=== PATIENT | female | born 1935 | race Caucasian/White ===

== ENCOUNTER 2016-10-05 00:42 | Inpatient (IN) | payer OTHER ==
[2016-10-05] MEDS ORDERED: DUONEB (A & A) INH ONE ×2 (00:51→03:39)
[2016-10-05] MEDS ORDERED: ROCEPHIN 1 GM/NS 50 ML IV ONE (00:51)
[2016-10-05] MEDS ORDERED: LASIX IV ONE ×2 (00:51→03:59)
--- NOTE | 2016-10-05 00:57 | PROVIDER DOCUMENTATION ---
HPI-Respiratory General - General Chief Complaint: Shortness of Breath Stated Complaint: respiratory distress Time Seen by Provider: 10/05/16 00:50 Source: patient Allergies/Adverse Reactions: Patient Allergies Allergy/AdvReac Type Severity Reaction Status Date / Time Penicillins Allergy Unknown Verified 10/05/16 01:51 strawberry Allergy Unknown Verified 10/05/16 01:51 tomato Allergy Unknown Verified 10/05/16 01:51 - History of Present Illness-Resp Nature of Presenting Problem: 80 Y/O F presents to ED with Respiratory Distress. Pt was brought in by EMS for care facility. Pt was in moderate distress on arrival, EMS stated that her care facility stated a 102 Fever earlier in ED 98.3. Pt has severe pedal edema, COPD, CHF, and dementia. Onset about 2 days ago. Quality of Pain: reports: tightness Severity in ED: reports: moderate, severe Onset/Duration: reports: 2 days ago Timing: reports: still present Context: reports: aspiration/choking Cough Quality/Degree: reports: severe, dry cough Associated Symptoms: reports: cough, shortness of breath Review of Systems - Adult - REVIEW OF SYSTEMS - ADULT Constitutional: reports: fever. denies: chills Eyes: reports: no symptoms reported Ears, Nose, Mouth & Throat: reports: no symptoms reported Cardiovascular: reports: no symptoms reported Respiratory: reports: cough, shortness of breath Gastrointestinal: denies: abdominal pain, diarrhea, nausea, vomiting Genitourinary: reports: no symptoms reported Musculoskeletal: reports: no symptoms reported Integumentary: reports: no symptoms reported Neurological: reports: no symptoms reported Psychiatric: reports: no symptoms reported Endocrine: reports: no symptoms reported Hematologic/Lymphatic: reports: no symptoms reported Allergic/Immunologic: reports: no symptoms reported All Other Systems: Reviewed and Negative Past History - Adult - PAST MEDICAL HISTORY-ADULT Review of Records: reports: Old Records Reviewed, Nursing Assessment Review, Medications Reviewed, Social history reviewed & non-contributory. - SOCIAL HISTORY Smoking: non-smoker Substance Use: none/never Alcohol Use Frequency: never Living Situation: care facility Physical Exam-General - PHYSICAL EXAM-ADULT Initial Vital Signs Reviewed: Yes - CONSTITUTIONAL General Appearance: alert, moderate distress, obese, other (agitated). negative : appears well - EYES Eyes: PERRL/EOMI, pink conjunctivae, fundi clear, no AV nicking - HEAD, EARS, NOSE, MOUTH & THROAT HENMT: normocephalic/atraumatic, moist mucous membranes, normal ENT inspection, TMs normal, pharynx normal - NECK Neck: non-tender, full range of motion, supple - RESPIRATORY Respiratory: chest non-tender, crackles (bilateral), rhonchi (bilateral) - GASTROINTESTINAL (ABDOMEN) Abdominal Exam: normal bowel sounds, non tender, soft - LYMPHATIC Lymphatic: no adenopathy - MUSCULOSKELETAL Back Exam: normal inspection, no CVA tenderness Extremity: inflammation, pedal edema - SKIN Integumentary: normal color, normal turgor, warm/dry - PSYCHIATRIC Psych/Mental Status: oriented x 3 Progress - PLAN OF CARE/RESULTS Progress/Plan/Lab Results: Laboratory Tests 10/05/16 10/05/16 10/05/16 00:40 00:40 00:40 WBC 18.32 H RBC 3.80 L Hgb 11.0 L Hct 33.8 L MCV 88.9 MCH 28.9 MCHC 32.5 L RDW Std Deviation 15.0 H Plt Count 428 H MPV 12.5 H Immature Gran % (Auto) 0.7 H Neut % (Auto) 80.2 H Lymph % (Auto) 8.0 L Louisa % (Auto) 10.7 H Eos % (Auto) 0.2 Baso % (Auto) 0.2 Immature Gran # (Auto) 0.12 H Neut # (Auto) 14.71 H Lymph # (Auto) 1.47 Louisa # (Auto) 1.96 H Eos # (Auto) 0.03 Baso # (Auto) 0.03 PT INR PTT (Actin FS) D-Dimer 1.61 H Specimen Type Sample Site pH pCO2 pO2 HCO3 Base Excess Oxyhemoglobin ABG O2 Sat (Calculated) ABG O2 Saturation ABG Carboxyhemoglobin ABG Methemoglobin Иван Test A-a O2 Difference Total Hemoglobin Lactate Blood Gas Modality Vent Mode FiO2 % Inspiratory BiPAP Expiratory BiPAP Sodium 141 Potassium 5.3 H Chloride 101 Carbon Dioxide 22 L Anion Gap 18 BUN 64 H Creatinine 2.4 H Estimated GFR/1.73 m2 19 BUN/Creatinine Ratio 27 Glucose 240 H Calculated Osmolality 307 Calcium 9.7 Magnesium 1.7 Total Bilirubin 0.75 AST 41 H ALT 64 H Alkaline Phosphatase 129 H Creatine Kinase 151 Troponin T Vlo-Y-Sjoemutsgvq Pept Total Protein 7.9 Albumin 3.5 Globulin 4.4 Albumin/Globulin Ratio 0.8 Plasma Lactate Urine Source Urine Color Urine Turbidity Urine pH Ur Specific Durand Urine Protein Ur Glucose (Stick) Ur Ketones (Stick) Urine Blood Urine Nitrite Urine Bilirubin Urobilinogen Dipstick Urine Leukocytes Urine WBC (Auto) Urine RBC (Auto) U Epithel Cells (Auto) Urine Bacteria (Auto) Urine Crystals Small Round Cells Urine Casts Urine Yeast-like Cells 10/05/16 10/05/16 10/05/16 00:40 00:40 00:40 WBC RBC Hgb Hct MCV MCH MCHC RDW Std Deviation Plt Count MPV Immature Gran % (Auto) Neut % (Auto) Lymph % (Auto) Louisa % (Auto) Eos % (Auto) Baso % (Auto) Immature Gran # (Auto) Neut # (Auto) Lymph # (Auto) Louisa # (Auto) Eos # (Auto) Baso # (Auto) PT 10.7 INR 1.01 PTT (Actin FS) 28.2 D-Dimer Specimen Type Sample Site pH pCO2 pO2 HCO3 Base Excess Oxyhemoglobin ABG O2 Sat (Calculated) ABG O2 Saturation ABG Carboxyhemoglobin ABG Methemoglobin Иван Test A-a O2 Difference Total Hemoglobin Lactate Blood Gas Modality Vent Mode FiO2 % Inspiratory BiPAP Expiratory BiPAP Sodium Potassium Chloride Carbon Dioxide Anion Gap BUN Creatinine Estimated GFR/1.73 m2 BUN/Creatinine Ratio Glucose Calculated Osmolality Calcium Magnesium Total Bilirubin AST ALT Alkaline Phosphatase Creatine Kinase Troponin T 0.027 Lgc-S-Cnpyzltjtwt Pept 4234 H Total Protein Albumin Globulin Albumin/Globulin Ratio Plasma Lactate Urine Source Urine Color Urine Turbidity Urine pH Ur Specific Durand Urine Protein Ur Glucose (Stick) Ur Ketones (Stick) Urine Blood Urine Nitrite Urine Bilirubin Urobilinogen Dipstick Urine Leukocytes Urine WBC (Auto) Urine RBC (Auto) U Epithel Cells (Auto) Urine Bacteria (Auto) Urine Crystals Small Round Cells Urine Casts Urine Yeast-like Cells 10/05/16 10/05/16 10/05/16 00:40 01:00 01:20 WBC RBC Hgb Hct MCV MCH MCHC RDW Std Deviation Plt Count MPV Immature Gran % (Auto) Neut % (Auto) Lymph % (Auto) Louisa % (Auto) Eos % (Auto) Baso % (Auto) Immature Gran # (Auto) Neut # (Auto) Lymph # (Auto) Louisa # (Auto) Eos # (Auto) Baso # (Auto) PT INR PTT (Actin FS) D-Dimer Specimen Type ARTERIAL Sample Site R BRACHIAL pH 7.42 pCO2 34 L pO2 114 H HCO3 23.4 Base Excess -2.0 Oxyhemoglobin 96.6 ABG O2 Sat (Calculated) 13.5 L ABG O2 Saturation 98.8 ABG Carboxyhemoglobin 1.00 ABG Methemoglobin 1.3 Иван Test YES A-a O2 Difference 200.0 Total Hemoglobin 9.8 L Lactate 1.80 Blood Gas Modality BI PAP Vent Mode BIPAP FiO2 % 50.0 Inspiratory BiPAP 16.0 Expiratory BiPAP 6.0 Sodium Potassium Chloride Carbon Dioxide Anion Gap BUN Creatinine Estimated GFR/1.73 m2 BUN/Creatinine Ratio Glucose Calculated Osmolality Calcium Magnesium Total Bilirubin AST ALT Alkaline Phosphatase Creatine Kinase Troponin T Fur-D-Xracumncjuk Pept Total Protein Albumin Globulin Albumin/Globulin Ratio Plasma Lactate 2.0 Urine Source CATH Urine Color ORANGE Urine Turbidity TURBID Urine pH 5.0 Ur Specific Durand 1.011 Urine Protein TRACE A Ur Glucose (Stick) NEGATIVE Ur Ketones (Stick) NEGATIVE Urine Blood SMALL A Urine Nitrite NEGATIVE Urine Bilirubin NEGATIVE Urobilinogen Dipstick NORMAL Urine Leukocytes LARGE A Urine WBC (Auto) TNTC A Urine RBC (Auto) <10 U Epithel Cells (Auto) <10 Urine Bacteria (Auto) 3+ Urine Crystals NONE SEEN Small Round Cells NONE SEEN Urine Casts NONE SEEN Urine Yeast-like Cells NONE SEEN Orders Category Date Time Status Cardiac Monitoring DIRECTED Care 10/05/16 00:50 Active Gutierrez Cath Insertion ORDERED Care 10/05/16 00:51 Active Saline Loc NOW Care 10/05/16 00:50 Active Vital Signs Order Q15M Care 10/05/16 01:29 Active CHEST-1 VIEW [RAD] Stat Exams 10/05/16 01:28 Taken ABG [RESP] Routine Lab 10/05/16 01:20 Completed ABG [RESP] Routine Lab 10/05/16 02:26 Ordered BLOOD CULTURE [BLDCUL] Stat Lab 10/05/16 01:00 Received CBC WITH ELECTRONIC DIFF [HEME] Stat Lab 10/05/16 00:40 Results CK PROFILE [SP CHEM] Stat Lab 10/05/16 00:40 Completed COMPREHENSIVE METABOLIC PANEL [CHEM] Stat Lab 10/05/16 00:40 Completed D-DIMER [CHEM] Stat Lab 10/05/16 00:40 Completed LACTATE, PLASMA [CHEM] Stat Lab 10/05/16 00:40 Completed MAGNESIUM [CHEM] Stat Lab 10/05/16 00:40 Completed PRO B-NATRIURETIC PEPTIDE Stat Lab 10/05/16 00:40 Completed PROTIME WITH INR [COAG] Stat Lab 10/05/16 00:40 Completed PTT [COAG] Stat Lab 10/05/16 00:40 Completed TROPONIN T Stat Lab 10/05/16 00:40 Completed UA NIMS W/REFLEX CULT [URINALYSIS] Stat Lab 10/05/16 01:00 Completed URINE CULTURE [RM] Routine Lab 10/05/16 01:34 Received URINE MANUAL MICROSCOPIC [URINALYSIS] Stat Lab 10/05/16 01:00 Completed Albuterol 2.5MG/Ipratrop 0.5MG [Duoneb (A & A)] Med 10/05/16 00:51 Discontinued 3 ml INH NOW ONE CefTRIAXONE 1 GM/NS [Rocephin 1 gm/Ns] 50 ml Med 10/05/16 00:51 Discontinued IV NOW Furosemide [Lasix] Med 10/05/16 00:51 Discontinued 40 mg IV NOW ONE Levofloxacin 500 mg/D5w [Levaquin 500 mg/D5w] 100 ml Med 10/05/16 02:26 Active IV NOW Aerosol Treatments Routine Oth 10/05/16 00:53 Active Aerosol Treatments Stat Oth 10/05/16 00:53 Active BIPAP Stat Oth 10/05/16 00:54 Active EKG [EKG] Stat Ther 10/05/16 00:50 Ordered Vital Signs - 24 hr 10/05/16 10/05/16 10/05/16 00:45 01:45 02:09 Temperature 98.3 F Pulse Rate 60 60 68 Respiratory 34 H 25 H 28 H Rate Blood Pressure 156/74 252/68 151/74 O2 Sat by Pulse 85 L 100 98 Oximetry - EKG 1 Time of EKG reading by physician:: 00:52 EKG Read and Signed by:: Nigel Cardenas EKG Interpretation (*Must complete 3 of following elements*): Abnormal Rate: 60 Rhythm: Ventricular-Paced rhythm Comments: Abnormal ECG - XRAY 1 XRAY Study: Chest Impression: Abnormal XRAY Interpretation: CHF, possible right side pneumonia - CONSULTS/PCP/HOSPITALIST Notification #1 *Consult/PCP/Hospitalist*: Departure - Departure Time of Disposition Order: 02:26 DIAGNOSIS: SOB (shortness of breath) UTI (urinary tract infection) Qualifiers: Urinary tract infection type: site unspecified Hematuria presence: without hematuria Qualified Code(s): N39.0 - Urinary tract infection, site not specified CHF (congestive heart failure) Qualifiers: Congestive heart failure type: unspecified congestive heart failure type Congestive heart failure chronicity: unspecified congestive heart failure chronicity Qualified Code(s): I50.9 - Heart failure, unspecified Pneumonia Qualifiers: Laterality: left Lung location: lower lobe of lung Disposition: ADMITTED INPATIENT 09 Certified Medical Emergency: Emergent Condition: Stable Additional Instructions: ED Follow Up Instructions: You have been treated by a care provider in the Emergency Department. These instructions are being provided to you so you can have an understanding of how to care for yourself upon discharge. Upon discharge from the Emergency Department, you are responsible for making arrangements for follow-up care by a physician of your choice. Take all prescribed medications as directed. Return to the Emergency Department immediately for any new or worsening symptoms. You may call the Physician Referral phone number at [phone] to obtain a list of Physicians who are taking new patients. Attestation - Scribe Verification/Attestation Scribe:: Micaela Jimenez Acting as Scribe for:: Nigel Cardenas Scribe documention review:: This chart was documented by a scribe and accurately reflects the service the provider performed and the decisions made by the provider.
[2016-10-05 01:27] LABS: URINE SOURCE CATH
[2016-10-05 01:28] LABS: ALLEN TEST YES; BLOOD TYPE ARTERIAL; DRAW SITE R BRACHIAL; METHB 1.3 % (0.0-1.5); O2(CT) 13.5 mL/dL (15.0-23.0); PCO2(98.6) 34 mmHg (35-45); PO2(98.6) 114 mmHg (60-100); SAMPLE BLOOD; SAO2 98.8 % (95.0-100.0); THB 9.8 g/dL (11.5-17.4); pH(98.6) 7.42 (7.35-7.45)
[2016-10-05 01:29] LABS: BASO% 0.2 % (0.0-0.8); EOS# 0.03 X1000 (0.0-0.7); EOS% 0.2 % (0.0-10.0); HEMATOCRIT 33.8 % (37.0-47.0); IMM GRAN# 0.12 X1000 (0.0-0.04); IMM GRAN% 0.7 % (0.0-0.5); LYMPH# 1.47 X1000 (1.2-3.4); MANUAL DIFF NEEDED? YES; MCH 28.9 PG (27-31); MCHC 32.5 g/dL (33-37); MCV 88.9 FL (81-99); MONO# 1.96 X1000 (0.11-0.59); MONO% 10.7 % (1.7-9.3); MPV 12.5 FL (7.4-10.4); NEUT% 80.2 % (42.2-75.2); PLT 428 X1000 (130-400)
[2016-10-05 01:29] LABS: MODALITY BI PAP
[2016-10-05 01:29] LABS: BILIRUBIN URINE NEGATIVE (NEGATIVE); BLOOD URINE SMALL (NEGATIVE); COLOR ORANGE; GLUCOSE URINE NEGATIVE (NEGATIVE); LEUKOCYTES URINE LARGE (NEGATIVE); NITRITE URINE NEGATIVE (NEGATIVE); PROTEIN URINE TRACE mg/dL (NEGATIVE); SP GRAVITY URINE 1.011; TURBIDITY URINE TURBID (CLEAR); UROBILINOGEN URINE NORMAL (NORMAL)
[2016-10-05 01:30] LABS: URINE MICRO REVIEW NEEDED? YES
[2016-10-05 01:33] LABS: UR EPITHELIAL CELLS <10 /HPF (<10); URINE BACTERIA 3+ /HPF; URINE CULTURE NEEDED? YES; URINE RBC <10 /HPF (<10); URINE WBC TNTC /HPF (<10)
[2016-10-05 01:34] LABS: INR 1.01; PROTIME 10.7 Seconds (9.2-11.7); PTT 28.2 Seconds (22.0-36.0)
[2016-10-05 01:43] LABS: ALBUMIN 3.5 g/dL (3.5-5.0); CALCIUM 9.7 mg/dL (8.8-10.2); MAGNESIUM 1.7 mg/dL (1.5-2.7); POTASSIUM 5.3 mmol/L (3.5-5.1); TOTAL BILIRUBIN 0.75 mg/dL (0.20-1.00); TOTAL PROTEIN 7.9 g/dL (6.3-8.3)
[2016-10-05 01:45] LABS: URINE CASTS NONE SEEN; URINE CRYSTALS NONE SEEN; URINE SMALL ROUND CELLS NONE SEEN
[2016-10-05] MEDS ORDERED: LEVAQUIN 500 MG/D5W 100 ML IV ONE (02:26)
[2016-10-05 03:44] LABS: BANDS 4 % (0-1); LYMPHS 11 % (21-51); MONO 9 % (1-9)
[2016-10-05 04:10] LABS: ALLEN TEST YES; BE -0.6 mmoll (-3.0-3.0); BLOOD TYPE ARTERIAL; DRAW SITE R BRACHIAL; METHB 1.2 % (0.0-1.5); O2(CT) 15.5 mL/dL (15.0-23.0); PCO2(98.6) 33 mmHg (35-45); PO2(98.6) 92 mmHg (60-100); SAMPLE BLOOD; SAO2 98.2 % (95.0-100.0); THB 11.4 g/dL (11.5-17.4); pH(98.6) 7.45 (7.35-7.45)
[2016-10-05 04:11] LABS: MODALITY BI PAP
[2016-10-05] MEDS ORDERED: ZOFRAN IV PRN (05:24)
--- NOTE | 2016-10-05 05:44 | EKG Report ---
Test Performed on : 10/05/2016 00:52:25 AM Test Reason : SOB Blood Pressure : / mmHG Vent. Rate : 060 BPM Atrial Rate : 060 BPM P-R Int : 000 ms QRS Dur : 160 ms QT Int : 540 ms P-R-T Axes : 000 -65 092 degrees QTc Int : 540 ms Ventricular-paced rhythm Abnormal ECG When compared with ECG of 15-MAR-2012 11:36, Vent. rate has decreased BY 8 BPM Unconfirmed Result
[2016-10-05] MEDS: HEPARIN SUBQ SCH ×3 (06:15→21:53)
[2016-10-05] MEDS: MERREM 500 MG in NS 50 ML IV SCH ×2 (06:42→18:42)
[2016-10-05] MEDS: HUMALOG SUBQ SCH ×4 (06:50→23:10)
--- NOTE | 2016-10-05 07:10 | HISTORY AND PHYSICAL ---
CHIEF COMPLAINT: Shortness of breath. PRIMARY CARE PROVIDER: Dr. Levi Escobedo at [facility]. HISTORY OF PRESENT ILLNESS: This is an 80-year-old female who presented to the emergency room with acute respiratory distress. The patient was brought in by EMS from the [facility]. The [id number] was at the patient's bedside. She was in moderate distress on arrival. She had a temperature maximum of 102 earlier in the day. On arrival to the emergency room, she was 98.3. She was noted as having pedal lower extremity edema as well as having a past medical history of COPD, CHF, dementia, diabetes mellitus type 2, hyperlipidemia, hypertension, chronic kidney disease stage III, and diastolic heart failure. She had a pacemaker implanted in 2011. At any rate, a chest x-ray was obtained which showed increased pulmonary vascular congestion and a right lower lobe infiltrate as well as cardiomegaly. She was treated with Lasix and IV Levaquin and Rocephin in the emergency room. She will be admitted for further evaluation and treatment. PAST MEDICAL HISTORY: See HPI. PREVIOUS SURGICAL HISTORY: 1. Pacemaker implantation in 2011. 2. Hysterectomy. 3. Cholecystectomy in 1996. 4. Colon surgery in 1986 which I believe was a left hemicolectomy. FAMILY HISTORY: Father at 81 from a myocardial infarction. Mother had hypertension, has since . Brother . Two brothers with hypertension. A sister in her mid 80s which has no chronic health issues. SOCIAL HISTORY: She was in 1992, has 2 children. Lives at [facility]. Denies alcohol, tobacco, or illicit drug use or abuse. Has 4 grandchildren. REVIEW OF SYSTEMS: Fourteen point review of systems, the patient had no complaint including denying shortness of breath. However, she does have dementia. The daughter-in- law at the bedside said she visited her earlier today and had noticed increased lower extremity swelling as well as increased shortness of breath. Other pertinent positives are listed above in the HPI from the 14 point review of systems. PHYSICAL EXAMINATION: VITAL SIGNS: Temperature 98.2 degrees, pulse 68, respirations 28, blood pressure 151/74, oxygen saturation 98% on room air. GENERAL: This is a pleasantly confused, 80-year-old female who was lying on the ER stretcher on BiPAP. She has no acute distress now that the BiPAP is on. She is aware that she is in the hospital. She is alert to person. She is disoriented to situation and time. HEENT: Head is atraumatic, normocephalic. Pupils equal, round, reactive to light. Extraocular eye movement intact. Sclerae are anicteric. Conjunctivae are pale. Oral mucosa is moist. BiPAP is on. NECK: Supple. No JVD was noted. Trachea is midline. CARDIAC: Regular rhythm. S1-S2 appreciated. No murmurs, gallops, or rubs. Pacemaker noted in chest wall. LUNGS: Coarse throughout the lung mitchell, decreased bilaterally with noted crepitations. Symmetrical rise and fall with respirations. Patient was mildly tachypneic. ABDOMEN: Protuberant, soft, nondistended, nontender. Bowel sounds present in all 4 quadrants, normoactive. No pulsatile mass. No organomegaly. EXTREMITIES: No clubbing or cyanosis. There was 3+ pitting edema of bilateral lower extremities with erythema which the ovbsqkce-bk-zed at bedside states is chronic. It is mid hernandez on bilateral lower extremities. Mildly warm to touch. Diminished pedal pulses bilaterally. NEUROLOGICAL: Cranial nerves were not fully assessed but no focal deficits were noted. She is, again, not certain of date, stating that it was 17. She is oriented to person and knows that she is in the hospital. Disoriented as well to situation. DIAGNOSTIC DATA: Chest x-ray shows cardiomegaly, increased pulmonary vascular markings, and a right lower lobe infiltrate. LABORATORY DATA: WBC 18.32, hemoglobin 11, hematocrit 33.8, platelet count 428, 000, 4 band neutrophils. Coagulations within normal limits. D-dimer 1.61. ABG: PH 7.45, pCO2 33, PO2 92, bicarb 24.4. This was on 35% BiPAP. Sodium 141, potassium 5.3, chloride 101, carbon dioxide 22, BUN 64, creatinine 2.4, glucose 240. AST 41, ALT 64. ProBNP 4234. Urine: Leukocyte esterase positive, too numerous to count WBCs, 3+ bacteria. ASSESSMENT AND PLAN: 1. Acute exacerbation of congestive heart failure, likely diastolic in nature. The patient takes 80 mg of Lasix at home. We will give 80 mg intravenous in the emergency room and then continue 80 mg intravenous every 12 hours. A Gutierrez catheter is in place for strict intakes and outputs. The patient will be admitted inpatient in the CICU. 2. Right lower lobe pneumonia. This will be treated as healthcare-acquired. Patient has a noted penicillin allergy. We will give renally dosed Merrem as well as renally dosed Levaquin for adequate pseudomonal coverage intravenous. Blood cultures have been sent. 3. Urinary tract infection. The patient did not note dysuria but will be adequately treated with Levaquin and Merrem while urine cultures are pending. 4. Acute on chronic kidney disease stage III. We will monitor the patient's BUN and creatinine. 5. Diabetes mellitus type 2. We will place on sliding scale insulin. Check hemoglobin A1c. 6. Transaminitis of unknown etiology. We will monitor. 7. Dementia. Continue patient's Exelon. 8. Hypertension. Continue Norvasc and Cozaar and Capoten. 9. Hyperlipidemia. Continue Crestor. ALLERGIES: To penicillin, strawberries, and tomatoes. Dictated by JIMBO Chacon for Alessia Sutton MD Plan discussed with BEAM WARPER and did my own exam independently AUGUSTINA
[2016-10-05 07:56] LABS: HEMOGLOBIN A1C 7.4 % (4.8-6.0)
[2016-10-05] MEDS: DUONEB (A & A) INH SCH ×2 (08:22→16:26)
[2016-10-05] MEDS: LASIX IV SCH ×2 (09:00→21:53)
[2016-10-05] MEDS ORDERED: CAPOTEN PO SCH (09:00)
[2016-10-05] MEDS: ASPIRIN EC PO SCH (09:00)
[2016-10-05] MEDS: NORVASC PO SCH (09:00)
[2016-10-05] MEDS: LINZESS PO SCH (09:00)
[2016-10-05] MEDS: PATIENT'S OWN MED PO SCH ×2 (09:00→21:54)
[2016-10-05] MEDS ORDERED: COZAAR PO SCH (09:00)
--- NOTE | 2016-10-05 09:23 | Diag Imaging Result Document ---
PROCEDURE NAME: CHEST-1 VIEW - 10/05/2016 AP PORTABLE CHEST AT 0145 HOURS: FINDINGS: There is ill-defined opacity in the lung bases which probably represents mild pulmonary edema. This was also probably present on 03/21/2012, although the lungs are better expanded on the current study. IMPRESSION: Mild pulmonary edema.
[2016-10-05] MEDS: EXELON 9.5MG/24HRS TD SCH (14:05)
--- NOTE | 2016-10-05 14:47 | Diag Imaging Result Document ---
PROCEDURE NAME: CT THORAX W/O CONTRAST - 10/05/2016 CT CHEST: A CT dose reduction protocol was used. COMPARISON: Chest x-ray earlier 10/05/2016. FINDINGS: Stable left-sided dual-chamber pacemaker. Stable cardiomegaly. There is some indistinct patchy multifocal infiltrate bilaterally. There is also interlobular septal thickening suggesting pulmonary edema. There are some borderline enlarged mediastinal lymph nodes, most notably in the AP window. Bony structures are intact. IMPRESSION: Cardiomegaly. Probable pulmonary edema. Followup recommended. [facility]
--- NOTE | 2016-10-05 15:16 | CONSULTATION ---
DATE OF CONSULTATION: 10/05/2016 IMPRESSION: 1. Acute dyspnea, probably multifactorial but component of volume overload/congestive heart failure is present. 2. Significant leukocytosis and abnormal urinalysis. Suspect urinary infection as well as possible sepsis. 3. Acute congestive heart failure of mixed etiology in the setting of hypertensive cardiovascular disease and chronic kidney disease stage 4 bordering on stage 5. 4. Chronic kidney disease stage 4 bordering on stage 5. 5. Dementia. 6. Diabetes mellitus. 7. Hypertension. 8. History of atrial flutter. 9. Status-post permanent pacemaker. RECOMMENDATIONS: 1. Cautious diuresis. 2. Given the significant renal dysfunction favor discontinuation of angiotensin receptor blocking agent and angiotensin converting enzyme inhibitor. Would utilize amlodipine and hydralazine. 3. Repeat echocardiography/Doppler study. 4. Pursue possible diagnosis of sepsis and manage accordingly as you are doing. HISTORY: This is 80-year-old white female with a past history of dementia, chronic kidney disease stage 4 bordering on stage 5, hypertension, diabetes mellitus, atrial flutter, and previous permanent pacemaker implant was brought to the hospital because of worsening dyspnea. She was found to have wheezing, significant leukocytosis, significant renal dysfunction, and an elevated B type natriuretic peptide level. Congestive heart failure was suggested on chest x-ray. Cardiology consultation was requested. The patient is not able to give much in the way of any useful history. In fact, she denies dyspnea or chest discomfort despite the fact that she has a respiratory rate of 24-28 breaths per minute. PAST MEDICAL HISTORY: 1. Hypertension. 2. Type 2 diabetes mellitus. 3. Chronic kidney disease stage 4. 4. Dementia. 5. Atrial flutter. 6. Status-post permanent pacemaker implant. 7. Obesity. 8. Hyperlipidemia. 9. History of colon cancer. 10.History of gastroesophageal reflux. PAST SURGICAL HISTORY: Includes unspecified surgery for colon cancer and permanent pacemaker implant. MEDICATIONS PRIOR TO ADMISSION: As listed. SOCIAL HISTORY: She is and [facility]. She does not smoke or use alcohol. FAMILY HISTORY: Negative for premature coronary disease. REVIEW OF SYSTEMS: Pulmonary: Negative. Gastrointestinal: Negative. Constitutional: Negative. The remainder of the review of systems is negative/noncontributory; 14 total systems were reviewed. PHYSICAL EXAMINATION: GENERAL: Physical exam reveals an obese, elderly, female with an elevated respiratory rate and audible wheezing. VITAL SIGNS: As recorded, include a normal blood pressure and respiratory rate of 24-28 breaths per minute. HEENT: Extraocular movements appear intact. Mucous membranes are moist. NECK: The neck is supple. Jugular venous distention is not appreciated. There are no carotid bruits. PULMONARY: Auscultation of the chest reveals diffuse wheezes. CARDIAC: Exam reveals a regular rate and rhythm without appreciable murmur or gallop. ABDOMEN: Soft and nontender. Bowel sounds are normal. EXTREMITIES: The extremities demonstrate mild pretibial edema. NEUROLOGICAL: Exam reveals her to be alert and oriented to person and place. She is unaware of the date. Speech is fluent. She moves all 4 extremities equally well. SKIN: Warm and dry. PSYCH: Exam reveals her mood to be appropriate. ECG demonstrates a ventricular paced rhythm.
--- NOTE | 2016-10-05 20:56 | ECHO REPORT ---
ORDER DATE: 10/05/2016 INTERPRETING PHYSICIAN: Dr. Moffett REQUESTING PHYSICIAN: CLINICAL INDICATIONS: An 80-year-old female with CHF, pacemaker, shortness of breath, hypertension. M-MODE MEASUREMENTS: Right ventricle: 3.2 cm. Left ventricle end diastole: 4.5 cm. Left ventricle end systole: 2.6 cm. Posterior wall: 1.1 cm. Interventricular septum: 1.1 cm. Left atrium: 4.0 cm. Aortic root: 3.0 cm. SUMMARY OF 2-DIMENSIONAL IMAGING: This study is technically difficult. Left ventricular function is normal. Ejection fraction is estimated at 65-70%. The right ventricle is mildly enlarged. There is a pacemaker noted within the right ventricle. Both atria are dilated, especially the left. The patient is in atrial fibrillation. Pulse wave Doppler of mitral inflow shows a single filling wave. Color flow mapping of the mitral valve indicates a very mild degree of regurgitation. The aortic valve opens normally. Color flow mapping is unremarkable. There is no stenosis. There is no evidence of any significant regurgitation. The pulmonic valve looks basically grossly unremarkable. The tricuspid valve shows a moderate degree of regurgitation. The pulmonary systolic pressure is estimated to be in the range of 55-65 mmHg. No pericardial effusion, masses or thrombus noted. Clinical correlation recommended.
[2016-10-05] MEDS: DESYREL PO SCH (21:52)
[2016-10-05] MEDS: CRESTOR PO SCH (21:53)
[2016-10-06] MEDS: DUONEB (A & A) INH SCH ×3 (03:40→15:45)
[2016-10-06 05:35] LABS: BASO% 0.2 % (0.0-0.8); EOS# 0.17 X1000 (0.0-0.7); EOS% 1.8 % (0.0-10.0); HEMATOCRIT 29.5 % (37.0-47.0); HEMOGLOBIN 9.3 g/dL (12.0-16.0); IMM GRAN# 0.08 X1000 (0.0-0.04); IMM GRAN% 0.8 % (0.0-0.5); LYMPH% 11.5 % (20.5-51.1); MANUAL DIFF NEEDED? YES; MCH 28.5 PG (27-31); MCHC 31.5 g/dL (33-37); MCV 90.5 FL (81-99); MONO# 1.11 X1000 (0.11-0.59); MONO% 11.6 % (1.7-9.3); MPV 11.6 FL (7.4-10.4); NEUT% 74.1 % (42.2-75.2); PLT 354 X1000 (130-400); RBC 3.26 XMIL (4.2-5.4)
[2016-10-06 05:49] LABS: CALCIUM 8.9 mg/dL (8.8-10.2); MAGNESIUM 1.7 mg/dL (1.5-2.7); POTASSIUM 3.8 mmol/L (3.5-5.1)
[2016-10-06 06:13] LABS: BANDS 3 % (0-1); LYMPHS 14 % (21-51); MONO 4 % (1-9)
[2016-10-06] MEDS: HUMALOG SUBQ SCH ×4 (06:22→22:12)
[2016-10-06] MEDS: MERREM 500 MG in NS 50 ML IV SCH ×2 (06:22→17:01)
[2016-10-06] MEDS: HEPARIN SUBQ SCH ×4 (06:22→22:14)
[2016-10-06] MEDS ORDERED: VANCOMYCIN IV PER PHARMACY MISC SCH (08:45)
[2016-10-06] MEDS ORDERED: STERILE WATER INJ. INJ PRN (09:02)
[2016-10-06] MEDS ORDERED: GEODON IM PRN (09:02)
[2016-10-06] MEDS: EXELON 9.5MG/24HRS TD SCH (09:15)
[2016-10-06] MEDS: NORVASC PO SCH (09:15)
[2016-10-06] MEDS: LINZESS PO SCH (09:15)
[2016-10-06] MEDS: LASIX IV SCH ×2 (09:15→21:50)
[2016-10-06] MEDS: ASPIRIN EC PO SCH (09:15)
[2016-10-06] MEDS: PATIENT'S OWN MED PO SCH ×2 (09:16→22:12)
[2016-10-06] MEDS ORDERED: VANCOMYCIN 1,900 MG in NS 500 ML IV ONE (10:00)
--- NOTE | 2016-10-06 12:45 | PROGRESS NOTE ---
DATE: 10/06/2016 SUBJECTIVE: Patient reports feeling fine. Mild shortness of breath noted. No fever or chills reported, or any other complaint as per nursing staff. OBJECTIVE: Vitals: Temperature 98.3 degrees, heart rate 88, respiratory rate 22, blood pressure 102/51, O2 saturation 100% on 4L nasal cannula. General: This is a 89-year-old female lying in bed in no acute distress. Very hard of hearing. HEENT: Head is normocephalic and atraumatic. Anicteric sclerae and pale conjunctivae. Mucous membranes moist. Neck: Supple. No JVD noted. No carotid bruits. No lymphadenopathy. No thyromegaly. Cardiovascular: S1 and S2 heard. No murmurs, gallops, or rubs. Regular rate and rhythm. Pacemaker noted in the chest wall. Respiratory: Coarse breath sounds and also wheezing all over both pulmonary mitchell. Patient is not using any accessory muscles or having work of breathing. Abdomen: Soft, nontender to palpation. Bowel sounds present. No organomegaly. Extremities: No clubbing or cyanosis. There is 3+ pitting edema in both lower extremities. Neurological: Patient does not follow commands completely because she is very hard of hearing. Apparently, she moves 4 extremities, but she is confused on and off. LABORATORY DATA: White cell count 9.56, hemoglobin 9.3, hematocrit 29.5, platelets 354,000. BMP is remarkable for creatinine 2.0 and BUN 62. ASSESSMENT: 1. Congestive heart failure exacerbation. 2. Urinary tract infection. 3. Acute on chronic kidney disease, stage 3. 4. Diabetes mellitus, type 2. 5. Transaminitis of unknown etiology. 6. Dementia. 7. Hypertension. 8. Hyperlipidemia. PLAN: 1. Patient admitted to the hospital for sudden onset dyspnea and apparently this patient is developing an exacerbation of congestive heart failure. At this point, we will continue with the same diuresis therapy. In this case, patient is receiving furosemide 80 mg IV q.12 h. According to ins and outs, the patient is making good urine. At this point, we are going to continue with the same management. 2. Also, Cardiology has been consulted and they are okay with the oral therapy for suspicion of right lower lobe pneumonia. We have ordered a CT of the chest, but actually that examination did not show any pneumonia or confirm pulmonary edema. At this time, I think the patient does not need to be treated for that condition. 3. For urinary tract infection, the urine culture is positive for Gram-negative growth, but the final sensitivity is not back yet. We will continue with Levaquin, meropenem, and vancomycin. 4. For diabetes mellitus, type 2, we will continue with sliding scale insulin. The hemoglobin A1c is 7.4, which is not that high. 5. For the D-dimer that was elevated, we had ordered a V/Q scan that was refused by the patient yesterday, but after we talked with her today she is okay to have this exam done. 6. Dementia. We will continue with Exelon patch. 7. Hypertension. We will continue with Norvasc, Cozaar, and Capoten. 8. Hyperlipidemia. We will continue with home medications, in this case Crestor.
[2016-10-06] MEDS: CRESTOR PO SCH (21:49)
[2016-10-06] MEDS: DESYREL PO SCH (21:50)
[2016-10-07] MEDS: DUONEB (A & A) INH SCH ×5 (03:41→23:30)
[2016-10-07] MEDS: HEPARIN SUBQ SCH ×3 (06:17→21:39)
[2016-10-07] MEDS: HUMALOG SUBQ SCH ×4 (06:17→21:40)
[2016-10-07] MEDS: MERREM 500 MG in NS 50 ML IV SCH (06:18)
[2016-10-07] MEDS: LASIX IV SCH ×2 (09:39→21:40)
[2016-10-07] MEDS: ASPIRIN EC PO SCH (09:41)
[2016-10-07] MEDS: LINZESS PO SCH (09:42)
[2016-10-07] MEDS: EXELON 9.5MG/24HRS TD SCH (09:42)
[2016-10-07] MEDS: NORVASC PO SCH (09:51)
[2016-10-07] MEDS: PATIENT'S OWN MED PO SCH ×2 (11:23→22:19)
[2016-10-07] MEDS: KEFZOL 2 GM/D5W 50 ML IV SCH ×2 (15:35→23:20)
[2016-10-07] MEDS ORDERED: LEVAQUIN 500 MG/D5W 100 ML IV SCH (16:00)
--- NOTE | 2016-10-07 18:08 | PROGRESS NOTE ---
DATE: 10/07/2016 SUBJECTIVE: The patient reports feeling fine. No fever or chills. No other complaints as per nursing staff. OBJECTIVE: Vital Signs: Temperature 98.9 degrees, heart rate 60, respiratory rate 16, blood pressure 127/63, O2 saturation 100% 3 L nasal cannula. General examination: This is a chronically ill-looking and disheveled 80-year-old female lying in bed in no acute distress. Very hard of hearing. HEENT: Head is normocephalic, atraumatic. Anicteric sclerae and pale conjunctivae. Mucous membranes moist. Neck: Supple. No JVD noted. No carotid bruits. No lymphadenopathy. No thyromegaly. Cardiovascular: S1, S2 heard. No murmurs, gallops, or rubs. Regular rate and rhythm. Pacemaker noted in the chest wall. Respiratory: Coarse breath sound and also wheezing all over both pulmonary mitchell similar in comparing with yesterday. Patient is not using any accessory muscles or having work of breathing. Abdomen: Soft, nontender to palpation. Bowel sounds present. No organomegaly. Extremities: No clubbing, cyanosis but there is 2+ pitting edema in both lower extremities. Neurological: Patient follows commands and she is hard of hearing. It seems like she moves 4 extremities. LABORATORY DATA: There is no lab from today but microbiology shows E. coli pansensitive in the urine and Staph coagulase negative in 1 out of 2 blood cultures. We think that this patient has a contamination. ASSESSMENT AND PLAN: 1. Congestive heart failure. 2. Escherichia coli urinary tract infection. 3. Acute on chronic kidney disease. 4. Diabetes mellitus type 2. 5. Transaminitis of unknown etiology. 6. Dementia. 7. Hypertension. 8. Hyperlipidemia. PLAN: Patient was admitted to hospital for sudden onset dyspnea and apparently patient was developing an exacerbation of congestive heart failure. Also pneumonia was suspected but we have ordered a CT scan of the chest which basically shows pulmonary edema but no infiltrates at all. Right now she is receiving furosemide 80 mg IV q.12 hours. Is still having some wheezing and some crackles in both on the physical examination so will prefer to keep with the same treatment. For urinary tract infection patient was on Merrem, levofloxacin but now that we got the results of urine culture that shows pansensitive E. coli we are going to switch it to ceftriaxone 1 g IV q.24 hours and will switch to oral upon discharge. For diabetes will continue with the sliding scale insulin. It is moderately controlled because hemoglobin A1c is 7.4. We have noticed that D-dimer was high so V/Q scan was ordered considering her renal function but patient refused to have that exam. For hypertension will continue home medications in this case NorvascKevin and Capoten. For hyperlipidemia will continue with home medications.
[2016-10-07] MEDS: SPIRIVA INH SCH (18:21)
[2016-10-07] MEDS: CRESTOR PO SCH (21:39)
[2016-10-07] MEDS: DESYREL PO SCH (21:39)
[2016-10-08] MEDS: DUONEB (A & A) INH SCH ×6 (03:01→23:15)
[2016-10-08] MEDS: HEPARIN SUBQ SCH ×3 (04:34→21:42)
[2016-10-08] MEDS: KEFZOL 2 GM/D5W 50 ML IV SCH ×3 (06:31→22:14)
[2016-10-08] MEDS: HUMALOG SUBQ SCH ×4 (06:35→22:10)
[2016-10-08 07:07] LABS: CALCIUM 9.2 mg/dL (8.8-10.2); POTASSIUM 3.4 mmol/L (3.5-5.1)
[2016-10-08] MEDS ORDERED: KLOR-CON PO ONE (08:30)
[2016-10-08] MEDS: EXELON 9.5MG/24HRS TD SCH (09:48)
[2016-10-08] MEDS: LASIX IV SCH ×2 (09:48→15:38)
[2016-10-08] MEDS: ASPIRIN EC PO SCH (09:49)
[2016-10-08] MEDS: LINZESS PO SCH (09:49)
[2016-10-08] MEDS: NORVASC PO SCH (09:49)
[2016-10-08] MEDS ORDERED: VANCOMYCIN 1,400 MG in NS 250 ML IV SCH (10:00)
--- NOTE | 2016-10-08 11:12 | PROGRESS NOTE ---
DATE: 10/08/2016 SUBJECTIVE: This patient is lying on the bed. She is really hard of hearing. She has been refusing treatment, and she has been aggressive with the personnel. Today, we are going to talk to any family members to come and help us with this patient. We need to get an IV and IV access, probably a PICC line or a central line, and we need a consent for that. OBJECTIVE: Vital signs: Temperature 98.3, pulse 60, respiratory rate 19, blood pressure 129/58, oxygen saturation 98 on 2 L of nasal cannula. HEENT: Head normocephalic, no trauma, PERRLA. Neck: Supple, I am not sure about JVD--she has a really large neck. Central trachea. Chest: Crackles bilaterally, no wheezing. Abdomen: Soft, obese, nontender, nondistended. No hepatosplenomegaly. Extremities: No clubbing, no cyanosis, 2+ lower extremity edema. Neurological: The patient follows commands and she is hard of hearing. She moves all 4 extremities. She has been refusing treatment, and she has been aggressive with the personnel. LABORATORY: Sodium 145, potassium 3.4, chloride 101, bicarbonate 28, BUN 38, creatinine 1.6, glucose 135, calcium 9.2. ASSESSMENT AND PLAN: 1. Diastolic congestive heart failure exacerbation. For now, will continue with diuretics. Probably tomorrow will decrease the dose of them. Cardiology department is on board and they are following this patient. This patient has a pacemaker and the rhythm has been paced. 2. E. coli urinary tract infection, sensitive to ceftriaxone. Will continue with the same management for now. 3. Questionable bacteremia. She has a positive result for coagulase-negative staphylococcus, one out of two. I will repeat the blood cultures today, and I will monitor. For now, I will continue with the same management. 4. Acute on chronic kidney disease. This is her baseline. Continue to monitor. 5. Type 2 diabetes. Continue with the same management for now. 6. Transaminitis, possibly related with congestive heart failure exacerbation. I checked back the LFTs and apparently this has been chronic. Will continue to monitor. 7. Dementia. Will continue with the same management. Probably, this patient would need to be sedated to get a PICC line or central line. 8. Hypertension, stable. 9. Hyperlipidemia. Continue with the same management.
[2016-10-08] MEDS: PATIENT'S OWN MED PO SCH ×2 (11:25→22:12)
[2016-10-08 11:49] LABS: INR 1.07; PROTIME 10.9 Seconds (9.2-11.7)
[2016-10-08] MEDS ORDERED: NS 250 ML ONE (13:26)
[2016-10-08] MEDS ORDERED: HALDOL IM PRN (13:28)
--- NOTE | 2016-10-08 14:51 | Diag Imaging Result Document ---
PROCEDURE NAME: CHEST-1 VIEW - 10/08/2016 PORTABLE CHEST: COMPARISON: 10/05/2016. FINDINGS: There has been interval placement of PICC line from the left. The tip of the PICC line is indistinct due to technical factors but the PICC line can be followed to the distal superior vena cava. The patient is mildly rotated towards the left. There is mild cardiomegaly. There is decreased prominence of central markings on the right. There is fullness at the superior left hilum, possibly related to mild perihilar infiltrate. There is no substantial pleural effusion or pneumothorax identified. IMPRESSION: 1. Tip of PICC line indistinct, but the PICC line can be followed to the expected location of the distal superior vena cava. 2. Decreased prominence of central markings on the right. Possible mild infiltrate at left superior perihilar region.
[2016-10-08] MEDS: DESYREL PO SCH (21:42)
[2016-10-08] MEDS: CRESTOR PO SCH (21:43)
[2016-10-08] MEDS: HALDOL IV PRN (21:52)
[2016-10-09] MEDS: DUONEB (A & A) INH SCH ×6 (03:39→23:05)
[2016-10-09] MEDS: LASIX IV SCH ×2 (04:15→15:50)
[2016-10-09 05:29] LABS: MANUAL DIFF NEEDED? NO
[2016-10-09 05:46] LABS: BASO% 0.4 % (0.0-0.8); EOS# 0.56 X1000 (0.0-0.7); EOS% 5.2 % (0.0-10.0); HEMATOCRIT 35.1 % (37.0-47.0); HEMOGLOBIN 10.9 g/dL (12.0-16.0); IMM GRAN# 0.21 X1000 (0.0-0.04); LYMPH# 1.69 X1000 (1.2-3.4); LYMPH% 15.8 % (20.5-51.1); MCH 28.2 PG (27-31); MCHC 31.1 g/dL (33-37); MCV 90.9 FL (81-99); MONO# 1.01 X1000 (0.11-0.59); MONO% 9.4 % (1.7-9.3); MPV 11.1 FL (7.4-10.4); NEUT% 67.2 % (42.2-75.2); PLT 456 X1000 (130-400); RBC 3.86 XMIL (4.2-5.4)
[2016-10-09] MEDS: HEPARIN SUBQ SCH ×3 (05:53→20:07)
[2016-10-09] MEDS: HALDOL IV PRN (05:53)
[2016-10-09] MEDS: HUMALOG SUBQ SCH ×4 (06:06→21:18)
[2016-10-09] MEDS: KEFZOL 2 GM/D5W 50 ML IV SCH ×3 (06:07→23:47)
[2016-10-09 06:19] LABS: CALCIUM 8.9 mg/dL (8.8-10.2); POTASSIUM 3.6 mmol/L (3.5-5.1)
[2016-10-09] MEDS: SPIRIVA INH SCH (07:31)
[2016-10-09] MEDS: EXELON 9.5MG/24HRS TD SCH (08:35)
[2016-10-09] MEDS: PATIENT'S OWN MED PO SCH ×2 (08:35→20:07)
[2016-10-09] MEDS: LINZESS PO SCH (08:35)
[2016-10-09] MEDS: ASPIRIN EC PO SCH (08:35)
[2016-10-09] MEDS: NORVASC PO SCH (08:35)
--- NOTE | 2016-10-09 14:25 | PROGRESS NOTE ---
DATE: 10/09/2016 SUBJECTIVE: This patient is lying on the bed. She is not in acute distress. She is really hard of hearing. She has been getting treatment now through a PICC line, no acute events overnight. Cardiology department is following this patient. OBJECTIVE: Vital Signs: Temperature 97.5 degrees, pulse 60, respiratory rate 18, blood pressure 138/52, oxygen saturation 98 on 2 L of nasal cannula. HEENT: Head normocephalic. No trauma. PERRLA. Neck: Supple. I do not see JVD. She has a really large neck. Central trachea. Chest: She has crackles bilaterally and scattered wheezing. Abdomen: Soft, obese, nontender, nondistended. No hepatosplenomegaly. Extremities: No clubbing. No cyanosis. No edema. Neurological: The patient follows commands. She is hard of hearing. She moves all 4 extremities. LABORATORY: WBC 10.7, hemoglobin 10.9, hematocrit 35.1, platelets 456,000. Sodium 141, potassium 3.6, chloride 98, bicarbonate 30, BUN 30, creatinine 1.5, glucose 191, calcium 8.9. ASSESSMENT AND PLAN: 1. Diastolic congestive heart failure exacerbation. For now, we will continue with the same treatment. Cardiology department is following this patient. This patient has a pacemaker and the rhythm has been paced. 2. Escherichia coli urinary tract infection, sensitive to ceftriaxone. Will continue with the same management for now. 3. Questionable bacteremia. She has a positive result for coagulase-negative Staphylococcus 1/2. I repeated the blood cultures yesterday and so far they have been negative. We will continue to monitor. 4. Acute on chronic kidney disease. This is her baseline. Continue to monitor. 5. Type 2 diabetes. Continue with the same management for now. 6. Transaminitis. This is probably related to congestive heart failure exacerbation. We will monitor. It looks like she has been having elevated LFTs before. 7. Dementia. We will continue with the same management. 8. Hypertension. Stable. 9. Hyperlipidemia. Continue with the same management. CRITICAL CARE TIME: 30 minutes.
[2016-10-09] MEDS ORDERED: CALMOSEPTINE OINTMENT TOP PRN (14:54)
[2016-10-09] MEDS: CRESTOR PO SCH (20:06)
[2016-10-09] MEDS: DESYREL PO SCH (20:06)
[2016-10-10] MEDS: DUONEB (A & A) INH SCH ×6 (03:10→23:10)
[2016-10-10] MEDS: LASIX IV SCH ×3 (03:44→23:55)
[2016-10-10 05:32] LABS: MANUAL DIFF NEEDED? NO
[2016-10-10 05:51] LABS: BASO% 0.2 % (0.0-0.8); EOS# 0.51 X1000 (0.0-0.7); EOS% 4.2 % (0.0-10.0); HEMATOCRIT 36.1 % (37.0-47.0); HEMOGLOBIN 11.3 g/dL (12.0-16.0); IMM GRAN# 0.26 X1000 (0.0-0.04); IMM GRAN% 2.2 % (0.0-0.5); LYMPH# 1.78 X1000 (1.2-3.4); LYMPH% 14.7 % (20.5-51.1); MCH 28.4 PG (27-31); MCHC 31.3 g/dL (33-37); MCV 90.7 FL (81-99); MONO# 1.01 X1000 (0.11-0.59); MONO% 8.4 % (1.7-9.3); MPV 11.2 FL (7.4-10.4); NEUT% 70.3 % (42.2-75.2); PLT 422 X1000 (130-400); RBC 3.98 XMIL (4.2-5.4)
[2016-10-10] MEDS: KEFZOL 2 GM/D5W 50 ML IV SCH ×2 (06:07→14:50)
[2016-10-10] MEDS: HEPARIN SUBQ SCH ×3 (06:07→21:43)
[2016-10-10] MEDS: HUMALOG SUBQ SCH ×4 (06:26→21:00)
[2016-10-10 06:42] LABS: AGAP 14; ALKALINE PHOSPHATASE 103 U/L (32-104); BUN 30 mg/dL (8-22); CALCIUM 8.7 mg/dL (8.8-10.2); CHLORIDE 97 mmol/L (98-107); COSMO 291; GOT 15 U/L (10-30); GPT < 5 U/L (10-36); POTASSIUM 3.6 mmol/L (3.5-5.1); SODIUM 140 mmol/L (136-145); TCO2 29 mmol/L (25-35); TOTAL BILIRUBIN 0.31 mg/dL (0.20-1.00)
[2016-10-10] MEDS: SPIRIVA INH SCH (07:21)
[2016-10-10] MEDS: ASPIRIN EC PO SCH (08:55)
[2016-10-10] MEDS: LINZESS PO SCH (08:55)
[2016-10-10] MEDS: NORVASC PO SCH (08:55)
[2016-10-10] MEDS: PATIENT'S OWN MED PO SCH ×2 (08:55→21:00)
[2016-10-10] MEDS: EXELON 9.5MG/24HRS TD SCH (08:55)
--- NOTE | 2016-10-10 11:27 | PROGRESS NOTE ---
DATE: 10/10/2016 SUBJECTIVE: This patient states that she is feeling better. She is really hard of hearing. She has been getting treatment through a PICC line. No acute events overnight. Cardiology department is following this patient. OBJECTIVE: Vital Signs: Temperature 98.6 degrees, pulse 60, respiratory rate 20, blood pressure 136/57, oxygen saturation 98 on 2 L of nasal cannula. HEENT: Head normocephalic. No trauma. PERRLA. Neck: Supple. No JVD. No masses. Central trachea. Chest: Bilateral crackles bilaterally. No wheezing. Abdomen: Soft, obese, nontender, nondistended. No hepatosplenomegaly. Extremities: No clubbing, no cyanosis, 1+ lower extremity edema. Neurological Examination: The patient is alert. She is following commands. She is hard of hearing. She moves all 4 extremities. Laboratory: WBC 12, hemoglobin 11.3, hematocrit 36, platelets 422,000. Sodium 140, potassium 3.6, chloride 97, bicarbonate 29, BUN 30, creatinine 1.6, glucose 189, calcium 8.7. Albumin 3. ASSESSMENT AND PLAN: 1. Diastolic congestive heart failure exacerbation. I will decrease the dose of Lasix from 80 intravenous twice a day to 40 intravenous twice a day. I will ask for a new chest x-ray. This patient is feeling better. I will transfer this patient to the medical floor with telemetry. Cardiology department is following this patient. 2. Escherichia coli urinary tract infection, sensitive to cefazolin. I will continue with the same treatment. She has no symptoms at this moment. 3. Questionable bacteremia. She has a positive result for coagulase-negative Staphylococcus, one out of two. I repeated the blood cultures a couple of days ago and so far have been negative. We will continue with the same management. We will monitor. 4. Acute on chronic kidney disease, resolved. This is her baseline. 5. Transaminitis. This is chronic, stable. 6. Dementia. We will continue with the same management. 7. Hypertension, stable. 8. Hyperlipidemia. Continue with the same management.
--- NOTE | 2016-10-10 16:05 | Diag Imaging Result Document ---
PROCEDURE NAME: CHEST-PORTABLE - 10/10/2016 PORTABLE CHEST: COMPARISON: 10/08/2016. FINDINGS: Stable dual-chamber left-sided pacemaker. Stable mild cardiomegaly. There is significant improvement in the diffuse bilateral mixed infiltrates. No pneumothorax or large effusion. Stable right PICC line. IMPRESSION: Significant improvement from prior.
[2016-10-10] MEDS: CRESTOR PO SCH (21:42)
[2016-10-10] MEDS: DESYREL PO SCH (21:42)
[2016-10-11] MEDS: DUONEB (A & A) INH SCH ×3 (03:32→11:30)
[2016-10-11] MEDS: HEPARIN SUBQ SCH ×3 (04:27→12:00)
[2016-10-11 06:02] LABS: BASO% 0.6 % (0.0-0.8); EOS# 0.47 X1000 (0.0-0.7); EOS% 4.3 % (0.0-10.0); HEMATOCRIT 34.5 % (37.0-47.0); HEMOGLOBIN 10.8 g/dL (12.0-16.0); IMM GRAN# 0.27 X1000 (0.0-0.04); IMM GRAN% 2.5 % (0.0-0.5); LYMPH# 1.76 X1000 (1.2-3.4); LYMPH% 16.2 % (20.5-51.1); MANUAL DIFF NEEDED? YES; MCH 28.4 PG (27-31); MCHC 31.3 g/dL (33-37); MCV 90.8 FL (81-99); MONO# 0.97 X1000 (0.11-0.59); MONO% 8.9 % (1.7-9.3); NEUT% 67.5 % (42.2-75.2); PLT 399 X1000 (130-400)
[2016-10-11 06:25] LABS: CALCIUM 8.6 mg/dL (8.8-10.2); POTASSIUM 3.6 mmol/L (3.5-5.1)
[2016-10-11] MEDS: HUMALOG SUBQ SCH ×2 (06:42→11:32)
[2016-10-11 06:46] LABS: EOS 1 % (1-10); LYMPHS 12 % (21-51); MONO 4 % (1-9)
[2016-10-11 06:47] LABS: HYPOCHROM OCCASIONAL
[2016-10-11] MEDS: KEFZOL 2 GM/D5W 50 ML IV SCH ×2 (06:52)
[2016-10-11] MEDS: SPIRIVA INH SCH (07:40)
[2016-10-11] MEDS: EXELON 9.5MG/24HRS TD SCH (09:30)
[2016-10-11] MEDS: LINZESS PO SCH (09:30)
[2016-10-11] MEDS: LASIX IV SCH ×2 (09:30→10:46)
[2016-10-11] MEDS: NORVASC PO SCH (09:30)
[2016-10-11] MEDS: ASPIRIN EC PO SCH (09:30)
[2016-10-11] MEDS: PATIENT'S OWN MED PO SCH (09:30)
[2016-10-11 11:03] VITALS: BP 131/68
--- NOTE | 2016-10-11 14:02 | DISCHARGE SUMMARY ---
ADMISSION DATE: 10/05/2016 DISCHARGE DATE: 10/11/2016 CONSULTATIONS: Dr. Shahriar Dennison with Cardiology. PERTINENT PROCEDURES: Echocardiogram showed an EF of 65-70%. Both atria were dilated especially in the left. The patient was in atrial fibrillation. CT of the chest shows showed cardiomegaly, probable pulmonary edema. DISCHARGE DIAGNOSES: 1. Diastolic congestive heart failure exacerbation improved. Patient's Lasix dose will be changed from 80 daily to 40 p.o. b.i.d. 2. E. coli UTI. The patient finished a course of antibiotics with Levaquin. 3. Questionable bacteremia. The patient had a positive culture for coagulase-negative staphylococci 1 out of 2. Repeat blood cultures have been negative so far. The patient was on IV antibiotics. Again felt this was a contaminant. 4. Acute on chronic kidney disease, resolved. Patient is back at her baseline. 5. Transaminitis, chronic and stable. 6. Dementia. Continue with current management. 7. Hypertension, stable. 8. Hyperlipidemia. Continue on Crestor. 9. Right lower lobe pneumonia. Again the patient was placed on IV antibiotics. 10. Diabetes mellitus type 2. Continue with glipizide. Patient taken off her metformin due to her chronic kidney disease. 11. Chronic kidney disease stage 3. The patient's Cozaar as well as Capoten have been discontinued per Cardiology due to the patient's kidney disease and acute kidney injury. She is continued on her Norvasc. HOSPITAL COURSE: Briefly, Ms. Kapoor is an 80-year-old female who presented to the emergency room with acute respiratory distress. She carries a past medical history, COPD, congestive heart failure, dementia, diabetes mellitus type 2, hyperlipidemia, hypertension, chronic kidney disease stage 3, pacemaker implantation in 2011. The patient was brought in by EMS from the [facility]. Patient was in moderate distress on arrival. Maximum temperature of 102 degrees earlier in the day. The patient was noted to have lower extremity pedal edema. Chest x-ray showed increased pulmonary vascular congestion and a right lower lobe infiltrate as well as cardiomegaly. She was treated with IV Lasix in the ED, IV Levaquin and Rocephin. She was admitted with a Cardiology consult as well as the continuation of IV Lasix. Due to the patient's penicillin allergy she was renally dosed on Merrem and Levaquin for adequate pseudomonal coverage. She did have acute on chronic kidney injury. Cardiology was consulted. They wanted to be cautious with her diuresis. Her IV Lasix was taken from 80 to 40 b.i.d. and then transitioned to p.o. Lasix. She was getting 80 mg daily. She will now be getting 40 mg daily and they discontinued her RUCHI, her Cozaar and her Capoten and continued with her Norvasc. She was also placed on daily weights and strict I's and O's. Patient was found to have an E. coli UTI. She was switched to cefazolin. Patient did have one positive blood culture that was coag-negative. Repeat blood cultures were negative. [place] that this was a contaminant. The patient clinically improved. Again the patient is really hard of hearing. Repeat chest x-rays that showed marked improvement. Her kidney function is back to her baseline. Dr. Padilla feels the patient is appropriate for discharge back to [facility]. Vital signs at time of her discharge, temperature is 97.6 degrees, heart rate 60, respirations 14, blood pressure 131/68, O2 is 98% on 3 L nasal cannula. Discharge diet is diabetic. DISCHARGE MEDICATIONS: 1. Norvasc 5 mg p.o. daily. 2. Jose Alfredo packet 1 each p.o. b.i.d. 3. Aspirin 81 mg p.o. daily. 4. DuoNeb 3 mL inhaled RT 4 times a day. 5. Exelon 9.5 mg patch 1 each TD daily. 6. Linzess 145 mcg p.o. daily. 7. Crestor 5 mg p.o. at bedtime. 8. Trazodone 75 mg p.o. at bedtime. 9. Glucotrol 2.5 mg p.o. b.i.d. 10. Lasix 40 mg p.o. b.i.d. 11. Levaquin 250 mg p.o. daily for 3 more days. FOLLOWUP: The patient is being discharged back to her long-term care at [facility] where she will follow up with Dr. Levi Ash there. The patient can return to the ED for any worsening of symptoms. Discharge time greater than 30 minutes. Dictated by JIMBO Varela for Iker Sarabia MD
[2016-10-11] MEDS ORDERED: GLUCOTROL PO SCH (17:00)
[2016-10-11] MEDS ORDERED: LASIX PO SCH (21:00)
[2016-10-12] MEDS ORDERED: LEVAQUIN PO SCH (09:00)
== END 2016-10-11 15:50 | DRG 291 ==
LOC: EDBD → EDUNIT# → SUPCPDRO 00:42 → ED 00:42 → EDIPHOLD 04:35 → 3S 14:23
PROVIDERS: ATTEND Internal Medicine
PROC: 02HV33Z Insertion of Infusion Device into Superior Vena Cava, Percutaneous Approach (ICD-10-PCS; principal; 2016-10-08)
DX: I13.0 Hypertensive heart and chronic kidney disease with heart failure and stage 1 through stage 4 chronic kidney disease, or unspecified chronic kidney disease (principal); I50.33 Acute on chronic diastolic (congestive) heart failure; J18.9 Pneumonia, unspecified organism; N17.9 Acute kidney failure, unspecified; E11.22 Type 2 diabetes mellitus with diabetic chronic kidney disease; J44.0 Chronic obstructive pulmonary disease with (acute) lower respiratory infection; F03.90 Unspecified dementia, unspecified severity, without behavioral disturbance, psychotic disturbance, mood disturbance, and anxiety; N18.3 Chronic kidney disease, stage 3 (moderate); N39.0 Urinary tract infection, site not specified; B96.20 Unspecified Escherichia coli [E. coli] as the cause of diseases classified elsewhere; R74.8 Abnormal levels of other serum enzymes; E78.5 Hyperlipidemia, unspecified; Y95 Nosocomial condition; E66.9 Obesity, unspecified; R79.1 Abnormal coagulation profile; I48.91 Unspecified atrial fibrillation; Z68.37 Body mass index [BMI] 37.0-37.9, adult; Z79.899 Other long term (current) drug therapy; Z79.82 Long term (current) use of aspirin; Z95.0 Presence of cardiac pacemaker; Z90.49 Acquired absence of other specified parts of digestive tract; Z82.49 Family history of ischemic heart disease and other diseases of the circulatory system; Z85.038 Personal history of other malignant neoplasm of large intestine
CPT/HCPCS: 36569; 51702; 71010; 71250; 80048; 80053; 81001; 82550; 82805; 82948; 83036; 83605; 83735; 83880; 84443; 84484; 85025; 85379; 85610; 85730; 87040; 87077; 87088; 87186; 93005; 93306; 94640; 94761; 96365; 96367; 96372; 96375; 96376; J0690; J0696; J1630; J1644; J1815; J1940; J2185; J3370; J3486; J7040; J7050; 97110-GP; 97530-GP